=== PATIENT | female | born 2000 | race Caucasian/White ===

== ENCOUNTER 2021-12-30 09:13 | Emergency (ER) | payer MEDICAID ==
[~2021-12-30 09:13] MED LIST: AMOXICILLIN500 M3 PO; AMOXIL250 MG/5 M PO; AMOXIL400 MG/5 M PO; MOTRIN100 MG/5 M PO; TYLENOL W/ CODEI5 ML PO; ZOFRAN ODT4 MG SL; ZOFRAN4 MG PO
[2021-12-30] MEDS ORDERED: PREDNISONE10 MG PO (09:36)
== END 2021-12-30 09:43 | disposition home or self-care (01) ==
LOC: ED 09:13
DX: L23.7 Allergic contact dermatitis due to plants, except food (principal)

== ENCOUNTER 2022-03-14 12:07 | Emergency (ER) | payer MEDICAID ==
[~2022-03-14] VITALS: Ht 160 cm; Wt 117.9 kg
[~2022-03-14 12:07] MED LIST changes: +PREDNISONE10 MG PO
[2022-03-14] MEDS ORDERED: MEDROL DOSEPAK4 MG PO (13:01)
== END 2022-03-14 13:12 | disposition home or self-care (01) ==
LOC: ED 12:07
DX: L25.9 Unspecified contact dermatitis, unspecified cause (principal)

== ENCOUNTER 2022-12-23 15:40 | Emergency (ER) | payer MEDICAID ==
[~2022-12-23] VITALS: Ht 160 cm; Wt 108.4 kg
[~2022-12-23 15:40] MED LIST changes: +MEDROL DOSEPAK4 MG PO
[2022-12-23] MEDS ORDERED: CYCLOBENZAPRINE5 M3 PO (20:24)
== END 2022-12-23 20:38 | disposition home or self-care (01) ==
LOC: ED 15:40
DX: S39.012A Strain of muscle, fascia and tendon of lower back, initial encounter (principal); F32.A Depression, unspecified; Z87.891 Personal history of nicotine dependence; W07.XXXA Fall from chair, initial encounter; Y93.89 Activity, other specified; Y92.89 Other specified places as the place of occurrence of the external cause; Y99.8 Other external cause status

== ENCOUNTER 2023-01-24 18:34 | Emergency (ER) | payer MEDICAID ==
[~2023-01-24] VITALS: Ht 160 cm; Wt 108.4 kg
[~2023-01-24 18:34] MED LIST changes: +CYCLOBENZAPRINE5 M3 PO
[2023-01-24 19:31] LABS: BASO # 0.1 10*3/uL (0.0-0.1); BASO % 0.9 % (0.0-1.0); EOS # 0.2 10*3/uL (0.0-0.4); HEMATOCRIT 42.6 % (37.0-47.0); LYMPH # 2.5 10*3/uL (1.3-4.4); LYMPH % 39.5 % (27.0-41.0); MEAN CELL VOLUME 86.6 fl (81.0-99.0); MEAN CORPUSCULAR HGB 30.1 pg (27.0-31.0); MEAN CORPUSCULAR HGB CONC 34.7 g/dl (33.0-37.0); MEAN PLATELET VOLUME 9.8 fl (9.6-12.3); MONO # 0.5 10*3/uL (0.1-1.0); MONO % 7.1 % (3.0-9.0); NEUT # 3.1 10*3/uL (2.3-7.9); NEUT % 49.2 % (47.0-73.0); PLATELET COUNT AUTOMATED 287 10*3/uL (130-400); RED BLOOD COUNT 4.92 10*6/uL (4.10-5.10); RED CELL DISTRI WIDTH 12.7 % (0-14.5); WHITE BLOOD COUNT 6.4 10*3/uL (4.8-10.8)
[2023-01-24 19:52] LABS: ALKALINE PHOSPHATASE 74 U/L (46-116); BUN 9 mg/dl (9-23); CHLORIDE 107 mmol/L (98-107); SGPT/ALT 28 U/L (10-49); TOTAL PROTEIN 7.2 gm/dL (6.0-8.0)
== END 2023-01-24 20:31 | disposition home or self-care (01) ==
LOC: ED 18:34
PROVIDERS: Nurse Practitioner Family
DX: R20.2 Paresthesia of skin (principal); F32.A Depression, unspecified

== ENCOUNTER 2023-04-06 13:17 | Emergency (ER) | payer SELFPAY ==
[~2023-04-06] VITALS: Ht 160 cm; Wt 104.3 kg
[2023-04-06] MEDS ORDERED: VENLAFAXINE H37.5 M5 PO (13:31)
[2023-04-06 14:37] LABS: BASO % 0.4 % (0.0-1.0); EOS # 0.1 10*3/uL (0.0-0.4); EOS % 0.9 % (1.0-4.0); HEMATOCRIT 39.7 % (37.0-47.0); LYMPH # 0.7 10*3/uL (1.3-4.4); MEAN CELL VOLUME 89.2 fl (81.0-99.0); MEAN CORPUSCULAR HGB 29.2 pg (27.0-31.0); MEAN CORPUSCULAR HGB CONC 32.7 g/dl (33.0-37.0); MEAN PLATELET VOLUME 9.8 fl (9.6-12.3); MONO # 0.3 10*3/uL (0.1-1.0); MONO % 4.6 % (3.0-9.0); NEUT # 5.7 10*3/uL (2.3-7.9); NEUT % 83.8 % (47.0-73.0); PLATELET COUNT AUTOMATED 279 10*3/uL (130-400); RED BLOOD COUNT 4.45 10*6/uL (4.10-5.10); RED CELL DISTRI WIDTH 12.5 % (0-14.5); WHITE BLOOD COUNT 6.8 10*3/uL (4.8-10.8)
[2023-04-06 14:54] LABS: ALKALINE PHOSPHATASE 66 U/L (46-116); BUN 7 mg/dl (9-23); CHLORIDE 108 mmol/L (98-107); LIPASE 29 U/L (12-53); POTASSIUM 3.5 mmol/L (3.4-5.1); SGPT/ALT 20 U/L (5-49); TOTAL PROTEIN 6.7 gm/dL (6.0-8.0)
[2023-04-06 15:52] LABS: BILIRUBIN Negative (Negative); BLOOD Negative (Negative); CLARITY Clear (Clear); COLOR Yellow (Yellow); GLUCOSE Negative (Negative); KETONE Negative (Negative); LEUKO ESTERASE 1+ (Negative); NITRITE Negative (Negative); PH 7.5 (4.5-8.0); SPECIFIC GRAVITY <= 1.005 (1.001-1.030); UROBILINOGEN 0.2 E.U./dl (0.0-1.0)
[2023-04-06 16:07] LABS: BACTERIA 2+
[2023-04-06] MEDS ORDERED: OMNICEF300 MG PO (16:12)
== END 2023-04-06 16:37 | disposition home or self-care (01) ==
LOC: ED 13:17
PROVIDERS: Nurse Practitioner Family
DX: N39.0 Urinary tract infection, site not specified (principal); R51.9 Headache, unspecified; R11.0 Nausea; F32.A Depression, unspecified; Z20.822 Contact with and (suspected) exposure to COVID-19

== ENCOUNTER 2024-01-19 13:11 | Emergency (ER) | payer SELFPAY ==
[~2024-01-19] VITALS: Ht 162.5 cm; Wt 106.6 kg
[~2024-01-19 13:11] MED LIST changes: +OMNICEF300 MG PO; +VENLAFAXINE H37.5 M5 PO
[2024-01-19] MEDS ORDERED: NAPROSYN500 MG PO (15:51)
[2024-01-19] MEDS ORDERED: methylPREDNISolone sod succ 125 MG VIAL IM ONE (15:55)
== END 2024-01-19 15:55 | disposition home or self-care (01) ==
LOC: ED 13:11
DX: S66.911A Strain of unspecified muscle, fascia and tendon at wrist and hand level, right hand, initial encounter (principal); F32.A Depression, unspecified; X50.0XXA Overexertion from strenuous movement or load, initial encounter; Y93.89 Activity, other specified; Y92.89 Other specified places as the place of occurrence of the external cause; Y99.0 Civilian activity done for income or pay

== ENCOUNTER 2024-02-16 10:57 | Emergency (ER) | payer SELFPAY ==
[~2024-02-16] VITALS: Ht 162.5 cm; Wt 105.7 kg
[~2024-02-16 10:57] MED LIST changes: +NAPROSYN500 MG PO
[2024-02-16] MEDS ORDERED: BROMFED DM COU118 M2 PO (12:49)
[2024-02-16] MEDS ORDERED: AMOXICILLIN500 M3 PO (12:49)
== END 2024-02-16 12:56 | disposition home or self-care (01) ==
LOC: ED 10:57
DX: J06.9 Acute upper respiratory infection, unspecified (principal); Z20.822 Contact with and (suspected) exposure to COVID-19; F32.A Depression, unspecified

== ENCOUNTER 2024-05-27 11:27 | Emergency (ER) | payer SELFPAY ==
[~2024-05-27] VITALS: Ht 160 cm; Wt 106.6 kg
[~2024-05-27 11:27] MED LIST changes: +BROMFED DM COU118 M2 PO
[2024-05-27] MEDS ORDERED: SODIUM CHLORIDE 0.9% 1,000 ML IV ONE (12:25)
[2024-05-27] MEDS ORDERED: Ketorolac Tromethamine 15 MG/ML VIAL IV ONE (12:25)
[2024-05-27 12:42] LABS: BASO % 0.8 % (0.0-1.0); EOS # 0.2 10*3/uL (0.0-0.4); EOS % 3.6 % (1.0-4.0); HEMATOCRIT 45.6 % (37.0-47.0); MEAN CELL VOLUME 89.1 fl (81.0-99.0); MEAN CORPUSCULAR HGB 28.5 pg (27.0-31.0); MEAN PLATELET VOLUME 9.9 fl (9.6-12.3); MONO # 0.4 10*3/uL (0.1-1.0); MONO % 7.8 % (3.0-9.0); NEUT # 2.1 10*3/uL (2.3-7.9); NEUT % 43.3 % (47.0-73.0); PLATELET COUNT AUTOMATED 305 10*3/uL (130-400); RED BLOOD COUNT 5.12 10*6/uL (4.10-5.10); RED CELL DISTRI WIDTH 12.5 % (0-14.5); WHITE BLOOD COUNT 4.7 10*3/uL (4.8-10.8)
[2024-05-27 12:59] LABS: BILIRUBIN Negative (Negative); BLOOD Negative (Negative); CLARITY Clear (Clear); COLOR Yellow (Yellow); GLUCOSE Negative (Negative); KETONE Negative (Negative); LEUKO ESTERASE 1+ (Negative); NITRITE Negative (Negative); SPECIFIC GRAVITY 1.015 (1.001-1.030); UROBILINOGEN 0.2 E.U./dl (0.0-1.0)
[2024-05-27 13:04] LABS: ALKALINE PHOSPHATASE 56 U/L (46-116); BUN 8 mg/dl (9-23); CHLORIDE 105 mmol/L (98-107); POTASSIUM 4.3 mmol/L (3.4-5.1); SGPT/ALT 18 U/L (5-49); TOTAL PROTEIN 7.2 gm/dL (6.0-8.0)
[2024-05-27 13:05] LABS: B-hCG (QUALITATIVE) NEGATIVE (NEGATIVE)
[2024-05-27 13:08] LABS: BACTERIA 2+
[2024-05-27] MEDS ORDERED: Ceftriaxone Sodium 1 GM/10 ML SYR IV ONE (13:50)
[2024-05-27] MEDS ORDERED: CIPRO500 MG PO (13:56)
[2024-05-27] MEDS ORDERED: MELOXICAM15 MG PO (13:56)
== END 2024-05-27 14:21 | disposition home or self-care (01) ==
LOC: ED 11:27
PROVIDERS: Emergency Medicine
DX: N39.0 Urinary tract infection, site not specified (principal); R10.32 Left lower quadrant pain; K21.9 Gastro-esophageal reflux disease without esophagitis; Z79.899 Other long term (current) drug therapy